=== PATIENT | male | born 1975 | race Caucasian/White ===

== ENCOUNTER 2017-05-10 12:30 | Emergency (ER) | payer OTHER ==
[2017-05-10] MEDS ORDERED: Acetaminophen/Codeine 30-300mg Tablet ONE (12:53)
[2017-05-10] MEDS ORDERED: AMOXicillin 250 MG CAP ONE (12:53)
[2017-05-10] MEDS ORDERED: diphenhydrAMINE HCl 25 MG CAP ONE (23:21)
== END 2017-05-10 12:55 | disposition home or self-care (01) ==
LOC: MADERS 12:30
DX: K04.7 Periapical abscess without sinus (principal); F17.210 Nicotine dependence, cigarettes, uncomplicated
CPT/HCPCS: 99282

== ENCOUNTER 2018-12-25 16:32 | Emergency (ER) | payer BC, OTHER ==
[~2018-12-25 16:32] MED LIST: Donnatal Elixir 16.2 MG/5 ML UDCUP ONE
[2018-12-25] MEDS ORDERED: Mag-Al Plus 1200 MG/1200 MG/120 MG/30 ML UDCUP ONE ×2 (17:15→19:13)
[2018-12-25] MEDS ORDERED: Donnatal Elixir 16.2 MG/5 ML UDCUP ONE ×2 (17:15→19:13)
[2018-12-25] MEDS ORDERED: Lidocaine Viscous Sol 2% 15 ml UD Cup ONE ×2 (17:15→19:13)
[2018-12-25 17:44] LABS: #Basophils 0.1 thou/uL (0.0-0.2); #Eosinphils 0.5 thou/uL (0.0-0.7); #Lymphocytes 4.2 thou/uL (1.20-3.40); #Monocytes 0.4 thou/uL (0.11-0.59); #Neutrophils 7.1 thou/uL (1.40-6.50); %Basophils 0.9 % (0.0-1.0); %Lymphocytes 34.1 % (21.0-51.0); %Monocytes 3.6 % (0.0-10.0); %Neutrophils 57.5 % (42.0-75.0); Hemoglobin 15.9 g/dL (14.0-18.0); Mean Corpuscular Hemoglobin 30.5 pg (27.0-31.0); Mean Corpuscular Volume 92.5 fL (78.0-98.0); Mean Platelet Volume 6.9 fL (7.4-10.4); Platelet Count 337 thou/uL (130-400); RBC Distribution Width 11.6 % (11.5-14.5); Red Blood Cell (RBC) Count 5.19 mill/uL (4.70-6.10); White Blood Cell (WBC) Count 12.4 thou/uL (4.8-10.8)
--- NOTE | 2018-12-25 17:45 | RAD ---
FRONTAL VIEW CHEST: 12/25/18 INDICATION: Chest pain. FINDINGS: There is patchy left basilar density. Interstitial prominence of each lung is present. The cardiac si lhouette is accentuated by portable technique. Mild prominence of the central pulmonary vasculature i s seen. IMPRESSION: Findings which may relate to mild fluid overload. Patchy left basilar density could reflect atelectas is, pneumonia or small volume pleural fluid. Consider followup with dedicated two view chest to confi rm resolution. POS: YASMIN
[2018-12-25 18:02] LABS: ALT (SGPT) 38 U/L (8-55); AST (SGOT) 23 U/L (5-34); Albumin 4.4 g/dL (3.5-5.0); Alkaline Phosphatase 101 U/L (40-150); Anion Gap 18 mmol/L (10-20); BUN (Urea Nitrogen) 10 mg/dL (8.9-20.6); Bilirubin, Total 0.3 mg/dL (0.2-1.2); Calc. Creatinine Clearance 0 mL/min (70-130); Calcium 9.2 mg/dL (7.8-10.44); Carbon Dioxide 20 mmol/L (22-29); Chloride 106 mmol/L (98-107); Estimated GFR-MDRD Greater than 90; Globulin 3.3 g/dL (2.4-3.5); Glucose 118 mg/dL (70-105); Potassium 3.7 mmol/L (3.5-5.1); Protein, Total 7.7 g/dL (6.0-8.3); Sodium 140 mmol/L (136-145)
== END 2018-12-25 19:27 | disposition left against medical advice (07) ==
LOC: MADERS 16:32
DX: R07.89 Other chest pain (principal); E78.5 Hyperlipidemia, unspecified; F43.10 Post-traumatic stress disorder, unspecified; F17.210 Nicotine dependence, cigarettes, uncomplicated
CPT/HCPCS: 36415; 71045; 80053; 83880; 84484; 85025; 93005